=== PATIENT | male | born 1945 | race Caucasian/White ===

== ENCOUNTER 2019-02-06 07:39 | Day surgery (SDC) | payer MEDICARE, OTHER ==
[~2019-02-06] VITALS: Ht 177.8 cm; Wt 81.8 kg
[2019-02-06] MEDS ORDERED: SODIUM CHLORIDE 0.9% 1,000 ML IV SCH (08:10)
[2019-02-06] MEDS ORDERED: APIX5TAB PO (08:23)
[2019-02-06] MEDS ORDERED: METO50TA82 PO ×2 (08:23→08:24)
[2019-02-06] MEDS ORDERED: DILT180C59 PO (08:23)
[2019-02-06 08:26] VITALS: BP 158/88
[2019-02-06] MEDS ORDERED: SODIUM CHLORIDE 0.9% 1,000 ML IV ONE (08:30)
[2019-02-06] MEDS ORDERED: MIDAZOLAM 1 MG/ML, 2ML ONE (10:11)
[2019-02-06] MEDS ORDERED: FENTANYL PF 250 MCG/5ML ONE (10:11)
[2019-02-06] MEDS ORDERED: DEXAMETHASONE 4 MG/ML, 1ML ONE (10:12)
[2019-02-06] MEDS ORDERED: ONDANSETRON 2MG/ML, 2ML ONE (10:12)
[2019-02-06] MEDS ORDERED: PROPOFOL 10 MG/ML, 20ML ONE (10:12)
[2019-02-06] MEDS ORDERED: ROCURONIUM 10MG/ML,5ML ONE (10:12)
[2019-02-06] MEDS ORDERED: SUCCINYLCHOLINE 20 MG/ML, 10ML ONE (10:16)
[2019-02-06] MEDS ORDERED: LIDOCAINE 2%, 20ML ONE (10:23)
[2019-02-06] MEDS ORDERED: ISOPROTERENOL 0.2MG/ML, 5ML ONE (10:36)
[2019-02-06] MEDS ORDERED: APIXABAN 5 MG TABLET ONE (11:24)
[2019-02-06] MEDS ORDERED: ACETAMINOPHEN 325 MG TABLET PO PRN (12:00)
[2019-02-06] MEDS ORDERED: APIXABAN 5 MG TABLET PO SCH ×2 (12:00)
[2019-02-06] MEDS ORDERED: FENTANYL PF 100 MCG/2ML ONE (12:05)
[2019-02-06] MEDS ORDERED: OXYcodone 5 MG/5 ML ORAL.SOL UDC ONE (12:06)
[2019-02-06] MEDS ORDERED: METOPROLOL TARTRATE 25 MG TABLET PO SCH (21:00)
== END 2019-02-06 16:16 | disposition home or self-care (01) ==
LOC: CACL 07:39
PROVIDERS: ATTEND Internal Medicine Cardiovascular Disease
DX: I48.92 Unspecified atrial flutter (principal); Z72.89 Other problems related to lifestyle; Z88.8 Allergy status to other drugs, medicaments and biological substances
CPT/HCPCS: 93005; 93312; 93321; 93325; 93613; 93621; 93653; C1730; C1894; C2630; J0330; J1100; J2250; J2405; J2704; J3010